=== PATIENT | male | born 1960 | race Caucasian/White ===

== ENCOUNTER → 2018-12-30 | Outpatient (REF) | LOC: M LAB LCGH 11:23 | PROVIDERS: ATTEND Nurse Practitioner Family | DX: D23.39 Other benign neoplasm of skin of other parts of face (principal) ==

== ENCOUNTER → 2023-05-24 | Outpatient (REF) | payer OTHER, BC | LOC: M SFHCDERM 08:35 | PROVIDERS: ATTEND Physician Assistant | DX: L82.0 Inflamed seborrheic keratosis (principal) ==